=== PATIENT | male | born 1965 | race Caucasian/White ===

== ENCOUNTER → 2021-01-03 | Outpatient (CLI) | payer OTHER ==
[~2021-01-03] MED LIST: AUGMENTIN 875-1 EACH PO; CLARITIN10 MG PO; COZAAR100 MG PO; HYDROCHLOROTHIA25 MG PO; LIPITOR80 MG PO; MESTINON TAB 6060 MG PO; NORVASC10 MG PO; PREDNISONE 10 M10 MG PO; PROTONIX 40 MG40 M1 PO; SILVADENE20 GM TOP; TAB-A-VITE TA400 MC1 PO; VITAMIN B-1100 M1 PO
== END ==
LOC: MAMO 12:37
DX: N63.20 Unspecified lump in the left breast, unspecified quadrant (principal); N62 Hypertrophy of breast
CPT/HCPCS: 76641-LT; 77065

== ENCOUNTER 2021-01-26 11:40 | Inpatient (IN) | payer OTHER ==
[~2021-01-26] VITALS: Ht 172.7 cm; Wt 86.2 kg
[2021-01-26 12:53] LABS: HEMOGLOBIN 15.5 gm/dl (14.0-17.5); RED BLOOD COUNT 4.64 M/UL (4.20-5.50); WHITE BLOOD COUNT 9.7 K/UL (4.5-11.0)
[2021-01-26 13:50] LABS: BUN/CREATININE RATIO 10 (0-10)
[2021-01-26] MEDS ORDERED: NORVASC10 MG PO (16:32)
[2021-01-26] MEDS ORDERED: LIPITOR80 MG PO (16:32)
[2021-01-26] MEDS ORDERED: HYDROCHLOROTHIA25 MG PO (16:33)
[2021-01-26] MEDS ORDERED: MESTINON TAB 6060 MG PO (16:33)
[2021-01-26] MEDS ORDERED: CLARITIN10 MG PO (16:33)
[2021-01-26] MEDS ORDERED: COZAAR100 MG PO (16:33)
[2021-01-26] MEDS ORDERED: PROTONIX 40 MG40 M1 PO (16:33)
[2021-01-26] MEDS ORDERED: PREDNISONE 10 M10 MG PO (16:34)
[2021-01-27 03:51] LABS: HEMOGLOBIN 13.6 gm/dl (14.0-17.5); RED BLOOD COUNT 4.17 M/UL (4.20-5.50); WHITE BLOOD COUNT 5.1 K/UL (4.5-11.0)
[2021-01-27 05:09] LABS: BUN/CREATININE RATIO 12 (0-10)
[2021-01-28 03:52] LABS: HEMOGLOBIN 12.1 gm/dl (14.0-17.5); WHITE BLOOD COUNT 4.6 K/UL (4.5-11.0)
[2021-01-28 03:53] LABS: RED BLOOD COUNT 3.72 M/UL (4.20-5.50)
[2021-01-29 05:15] LABS: HEMOGLOBIN 12.5 gm/dl (14.0-17.5); RED BLOOD COUNT 3.72 M/UL (4.20-5.50); WHITE BLOOD COUNT 4.3 K/UL (4.5-11.0)
[2021-01-30 08:08] LABS: HEMOGLOBIN 12.3 gm/dl (14.0-17.5); RED BLOOD COUNT 3.72 M/UL (4.20-5.50)
[2021-01-30 08:11] LABS: WHITE BLOOD COUNT 5.6 K/UL (4.5-11.0)
[2021-01-31 11:21] LABS: HEMOGLOBIN 11.5 gm/dl (14.0-17.5); RED BLOOD COUNT 3.53 M/UL (4.20-5.50); WHITE BLOOD COUNT 4.5 K/UL (4.5-11.0)
[2021-01-31] MEDS ORDERED: SILVADENE20 GM TOP (13:58)
[2021-01-31] MEDS ORDERED: VITAMIN B-1100 M1 PO (13:58)
[2021-01-31] MEDS ORDERED: TAB-A-VITE TA400 MC1 PO (13:58)
[2021-01-31] MEDS ORDERED: AUGMENTIN 875-1 EACH PO (14:06)
--- NOTE | 2021-01-31 17:19 | NUR ---
UPON DISCHARGE I SHOWED AND EDUCATED THE PATIENT AND HIS ON HOW TO CHANGE THE PATIENTS DRESSINGS. THEY BOTH VERBILIZED UNDERSTANDING.
== END 2021-01-31 17:23 | disposition home or self-care (01) | DRG 896 ==
LOC: ER1 11:40 → CDU 16:10 → MED SURG 4 16:10 → CCU 22:44 → MED SURG 4 01-30 11:32
PROVIDERS: Physician Assistant; Physician Assistant Medical; ADMIT Internal Medicine
DX: F10.229 Alcohol dependence with intoxication, unspecified (principal); N17.0 Acute kidney failure with tubular necrosis; E87.1 Hypo-osmolality and hyponatremia; E87.2 Acidosis; K57.32 Diverticulitis of large intestine without perforation or abscess without bleeding; T79.6XXA Traumatic ischemia of muscle, initial encounter; F10.239 Alcohol dependence with withdrawal, unspecified; K70.10 Alcoholic hepatitis without ascites; E86.0 Dehydration; Z20.822 Contact with and (suspected) exposure to COVID-19; R25.2 Cramp and spasm; T23.132A Burn of first degree of multiple left fingers (nail), not including thumb, initial encounter; K70.0 Alcoholic fatty liver; E87.6 Hypokalemia; M54.5 Low back pain; R74.01 Elevation of levels of liver transaminase levels; E78.5 Hyperlipidemia, unspecified; S30.811A Abrasion of abdominal wall, initial encounter; S60.512A Abrasion of left hand, initial encounter; G70.00 Myasthenia gravis without (acute) exacerbation; I10 Essential (primary) hypertension; W17.89XA Other fall from one level to another, initial encounter; L13.9 Bullous disorder, unspecified; Y92.015 Private garage of single-family (private) house as the place of occurrence of the external cause; Z79.899 Other long term (current) drug therapy; M51.36 Other intervertebral disc degeneration, lumbar region
CPT/HCPCS: ECHO; 36415; 70450; 71045; 72131; 72192; 73502; 80053; 80076; 80307; 81001; 82550; 82553; 83735; 83874; 84484; 85025; 85027; 93005; 93306; 96374; 96375; 99285; G0480; J1650; J2060; J2270; J2543; J3411; J3475; J7030; U0002

== ENCOUNTER 2021-02-06 17:00 | Emergency (ER) | payer OTHER ==
[2021-02-06 18:35] LABS: HEMOGLOBIN 11.1 gm/dl (14.0-17.5); RED BLOOD COUNT 3.38 M/UL (4.20-5.50); WHITE BLOOD COUNT 7.3 K/UL (4.5-11.0)
[2021-02-06 19:02] LABS: BUN/CREATININE RATIO 12 (0-10)
[2021-02-06] MEDS ORDERED: SINGULAIR10 MG PO (19:52)
[2021-02-06] MEDS ORDERED: Voltaren Gel 1 % TOP (19:52)
[2021-02-06] MEDS ORDERED: ATROVENT-HFA12.9 GM INH (19:52)
[2021-02-06] MEDS ORDERED: K-DUR TAB 20 M20 MEQ PO (20:34)
== END 2021-02-06 20:48 | disposition home or self-care (01) ==
LOC: ER1 17:00
PROVIDERS: Physician Assistant Medical
DX: E87.6 Hypokalemia (principal); E87.5 Hyperkalemia; I10 Essential (primary) hypertension
CPT/HCPCS: 36415; 80053; 85025; 93005; 99283

== ENCOUNTER → 2022-01-03 | Outpatient (CLI) | payer OTHER ==
[~2022-01-03] MED LIST changes: +ATROVENT-HFA12.9 GM INH; +K-DUR TAB 20 M20 MEQ PO; +SINGULAIR10 MG PO; +Voltaren Gel 1 % TOP
== END ==
LOC: US 08:00
DX: K52.9 Noninfective gastroenteritis and colitis, unspecified (principal)
CPT/HCPCS: 76705

== ENCOUNTER → 2022-01-31 | Outpatient (CLI) | payer OTHER | LOC: NM 13:38 | DX: K52.9 Noninfective gastroenteritis and colitis, unspecified (principal) | CPT/HCPCS: 78227; A9537 ==

== ENCOUNTER → 2022-03-30 | Outpatient (CLI) | payer OTHER | LOC: KOH-I 11:34 | DX: M25.561 Pain in right knee (principal); M25.562 Pain in left knee | CPT/HCPCS: 73562 ==